=== PATIENT | female | born 1985 | race African-American/Black ===

== ENCOUNTER 2021-03-18 11:13 | Emergency (ER) | payer MEDICAID, OTHER ==
[~2021-03-18] VITALS: Ht 160 cm; Wt 53.5 kg
[2021-03-18 11:47] LABS: Urine Bacteria FEW /hpf (None Seen); Urine Blood Negative /uL (Negative); Urine Mucus FEW (None Seen); Urine WBC <1 /hpf (0 - 5)
[2021-03-18 11:55] LABS: Basophils # (auto) 0 10 ^3/uL (0-0.2); Basophils % (auto) 1.3 % (0.0-2.0); Eosinophils # (auto) 0.3 10 ^3/uL (0-0.8); Hemoglobin 8.5 g/dL (12.2-16.2); Lymphocytes # (auto) 1.1 10 ^3/uL (0.4-5.4); Mean Corpuscular Hgb Conc. 29.7 g/dL (32.0-36.0); Monocytes # (auto) 0.3 10 ^3/uL (0-1.3); White Blood Cell 3.7 10^3/uL (4.4-10.8)
[2021-03-18 11:58] LABS: Eosinophils % (auto) 7.4 % (0.0-7.0); Hematocrit 28.6 % (36.0-46.0); Lymphocytes % (auto) 29.7 % (10.0-50.0); Mean Corpuscular Hemoglobin 19.3 pg (28.0-32.0); Mean Corpuscular Volume 65.1 fL (80.0-100.0); Monocytes % (auto) 7.6 % (0.0-12.0); Nucleated Red Blood Cells % 0.2 %
[2021-03-18 12:09] LABS: Albumin 3.2 g/dL (3.4-5.0); Calcium 8.2 mg/dL (8.5-10.1); Potassium 3.9 mmol/L (3.5-5.1)
[2021-03-18 12:12] LABS: BUN/Creatinine Ratio 6.5; Bilirubin, Total 0.2 mg/dL (0.2-1.0); Total Protein 8.9 g/dL (6.4-8.2)
[2021-03-18] MEDS ORDERED: KETOROLAC TROMETH 60MG/2ML VIAL IM ONE (14:15)
[2021-03-18] MEDS ORDERED: PANTOPRAZOLE 40 MG TAB PO ONE (14:15)
[2021-03-18 15:16] VITALS: BP 110/70
== END 2021-03-18 15:18 | disposition home or self-care (01) ==
LOC: ER 11:13
DX: N39.0 Urinary tract infection, site not specified (principal); N20.0 Calculus of kidney; K29.70 Gastritis, unspecified, without bleeding; F17.210 Nicotine dependence, cigarettes, uncomplicated; Z88.1 Allergy status to other antibiotic agents; Z88.8 Allergy status to other drugs, medicaments and biological substances
CPT/HCPCS: 36415; 71045; 74176; 80053; 81001; 82150; 83690; 83735; 84702; 85025; 96374; 99285; J1885

== ENCOUNTER 2021-03-21 09:29 | Emergency (ER) | payer MEDICAID ==
[~2021-03-21] VITALS: Ht 160 cm; Wt 53.5 kg
[2021-03-21 09:42] VITALS: BP 100/77
[2021-03-21 10:17] LABS: Hemoglobin 8.5 g/dL (12.2-16.2)
[2021-03-21 10:18] LABS: Hematocrit 27.5 % (36.0-46.0); Mean Corpuscular Hgb Conc. 30.8 g/dL (32.0-36.0); Red Blood Cells 4.22 10^6/uL (4.0-5.20); White Blood Cell 4.4 10^3/uL (4.4-10.8)
[2021-03-21 10:20] LABS: Basophils % (manual) 0 (0.0-2.0); Blast Cells 0; Metamyelocytes % 0; Myelocytes % 0; Promyelocytes % 0; Reactive Lymphocytes 0
[2021-03-21 10:43] LABS: Albumin 3.3 g/dL (3.4-5.0); Calcium 8.2 mg/dL (8.5-10.1); Potassium 4.6 mmol/L (3.5-5.1)
[2021-03-21 10:46] LABS: BUN/Creatinine Ratio 6.2; Bilirubin, Total 0.2 mg/dL (0.2-1.0); Total Protein 9.1 g/dL (6.4-8.2)
[2021-03-21] MEDS ORDERED: TAMSULOSIN HYDROCHLORIDE 0.4 MG CAP PO ONE (11:45)
[2021-03-21] MEDS ORDERED: SODIUM CHLORIDE 0.9% 1,000 ML IV ONE ×2 (11:45)
[2021-03-21] MEDS ORDERED: KETOROLAC TROMETH 30 MG/ML 1ML VIAL IV ONE (11:45)
[2021-03-21 12:15] LABS: Band Neutrophils % (manual) 4; Eosinophils % (manual) 4 (0-7); Lymphocytes % (manual) 21 (10.0-50.0); Monocytes % (manual) 6 (0-12)
== END 2021-03-21 13:03 | disposition home or self-care (01) ==
LOC: ER 09:29
DX: N20.0 Calculus of kidney (principal); F17.210 Nicotine dependence, cigarettes, uncomplicated; Z88.1 Allergy status to other antibiotic agents; Z88.8 Allergy status to other drugs, medicaments and biological substances
CPT/HCPCS: 36415; 74176; 80053; 83690; 85007; 85027; 96361; 96374; 99284; J1885; J7030

== ENCOUNTER 2021-04-05 08:59 | Emergency (ER) | payer MEDICAID ==
[~2021-04-05] VITALS: Ht 160 cm; Wt 54.4 kg
[2021-04-05 09:03] VITALS: BP 126/78
== END 2021-04-05 11:11 | disposition left against medical advice (07) ==
LOC: ER 08:59
DX: R10.9 Unspecified abdominal pain (principal); Z53.21 Procedure and treatment not carried out due to patient leaving prior to being seen by health care provider

== ENCOUNTER 2021-04-05 20:07 | Emergency (ER) | payer MEDICAID ==
[~2021-04-05] VITALS: Ht 160 cm; Wt 56.7 kg
[2021-04-05 21:07] LABS: Basophils # (auto) 0 10 ^3/uL (0-0.2); Basophils % (auto) 0.8 % (0.0-2.0); Eosinophils # (auto) 0.2 10 ^3/uL (0-0.8); Eosinophils % (auto) 3.7 % (0.0-7.0); Mean Corpuscular Hemoglobin 20.6 pg (28.0-32.0); Mean Corpuscular Hgb Conc. 30.7 g/dL (32.0-36.0); Mean Corpuscular Volume 66.9 fL (80.0-100.0); Monocytes # (auto) 0.5 10 ^3/uL (0-1.3); Monocytes % (auto) 9.1 % (0.0-12.0); Neutrophils # (auto) 2.8 10 ^3/uL (1.6-8.6); Neutrophils % (auto) 50.4 % (37.0-80.0); Nucleated Red Blood Cells % 0.1 %; Red Blood Cells 3.88 10^6/uL (4.0-5.20); White Blood Cell 5.5 10^3/uL (4.4-10.8)
[2021-04-05] MEDS ORDERED: SODIUM CHLORIDE 0.9% 1,000 ML IV ONE ×2 (21:15)
[2021-04-05] MEDS ORDERED: HYDROcodone-ACET 5/325MG TAB PO ONE (21:15)
[2021-04-05 21:16] LABS: Albumin 3.5 g/dL (3.4-5.0); BUN/Creatinine Ratio 6.8; Calcium 8.2 mg/dL (8.5-10.1); Potassium 3.4 mmol/L (3.5-5.1)
[2021-04-05 21:19] LABS: Bilirubin, Total 0.1 mg/dL (0.2-1.0); Total Protein 8.9 g/dL (6.4-8.2)
[2021-04-06 00:28] LABS: Alcohol, Urine < 3.0 mg/dL (0-10); Barbiturate Scree,Urine NEGATIVE (NEGATIVE); Benzodiazephine Screen, Urine NEGATIVE (NEGATIVE); Cannabinoid Screen, Urine POSITIVE (NEGATIVE); Cocaine Screen, Urine NEGATIVE (NEGATIVE); Opiate Scree,Urine NEGATIVE (NEGATIVE); Phencyclidine Screen, Urine NEGATIVE (NEGATIVE)
[2021-04-06 00:34] LABS: Urine Bacteria NONE SEEN /hpf (None Seen); Urine Blood Negative /uL (Negative); Urine Mucus FEW (None Seen); Urine Specific Gravity 1.022 (1.001-1.035); Urine WBC 1 /hpf (0 - 5)
[2021-04-06 00:35] LABS: Amphetamine Screen, Urine NEGATIVE (NEGATIVE)
[2021-04-06 00:49] VITALS: BP 139/94
== END 2021-04-06 02:36 | disposition home or self-care (01) ==
LOC: ER 20:13
DX: R10.12 Left upper quadrant pain (principal); R19.7 Diarrhea, unspecified; F17.210 Nicotine dependence, cigarettes, uncomplicated; Z87.442 Personal history of urinary calculi; Z87.440 Personal history of urinary (tract) infections; Z88.1 Allergy status to other antibiotic agents; Z88.6 Allergy status to analgesic agent
CPT/HCPCS: 36415; 71045; 74176; 80053; 80307; 81001; 83690; 84702; 85025